=== PATIENT | male | born 1950 | race Caucasian/White ===

== ENCOUNTER → 2017-06-14 | Outpatient (CLI) | payer OTHER ==
[~2017-06-14] MED LIST: ALPRAZOLAM 0.0.25 M1 PO; AMBIEN 5 MG TABL5 M1 PO; ASPIRIN EC81 M1 PO; CARVEDILOL6.25 MG PO; CETAPHIL226 GM; DIABETIC TUSSI400 MG PO; DIOVAN320 MG PO; FLONASE 0.05%50 MCG NASAL; FLOVENT HFA12 GM IH; FORTESTA60 GM TD; FUROSEMIDE 20 M20 M1 PO; FUROSEMIDE 40 M40 M1 PO; HUMALOG100 UNIT/1 SQ; HUMULIN N100 UNIT/1 SQ; IMDUR 60 MG TAB60 M1 PO; LANTUS INJECTION; LANTUS100 UNIT/M SUBQ; MEN'S 50+ DAIL1 EACH PO; MULTIVITAMINS1 EAC7 PO; NITROQUICK0.4 MG SL; NITROSTAT0.4 M1 SUBLING; OMEGA-31000 M1 PO; PLAVIX 75 MG TA75 M1 PO; POTASSIUM99 M1 PO; REGLAN 10 MG TA10 MG PO; REGLAN 5 MG TAB5 M1 PO; TUSSIN400 MG PO; VITAMIN D1000 UNI1 PO; ZANTAC 150MG T150 M1 PO; ZETIA10 MG PO; ZYRTEC10 MG PO
--- NOTE | ~2017-06-14 | 2DMMODE ---
[facility] [place] [place] [address] 2 D/M-MODE ECHOCARDIOGRAM Name: GABRIELE MARTINEZ JIM Room #: REG [facility]#: [id number] Admission: 06/14/17 Attend Phys: Eliud Michele MD Discharge: Date of : 48 Date of Service: 06/14/17 1427 Report #: [id number] THIS REPORT FOR: //name// APPROVED REPORT Study performed: 06/14/2017 13:00:30 EXAM: Comprehensive 2D, Doppler, and color-flow Echocardiogram Patient Location: Out-Patient Status: routine BSA: 2.16 HR: 78 bpm BP: 148/77 mmHg Rhythm: NSR/Irregular/PVC's Other Information Study Quality: Adequate Indications CAD Hx: CABG 2D Dimensions RVDd: 40.67 mm LVEF(%): 60.26 (>50%) IVSd: 10.14 (7-11mm) LVOT Diam: 21.73 (18-24mm) LVDd: 44.97 mm PWd: 9.84 (7-11mm) Ascending Ao: 31.64 (22-36mm) LVDs: 30.58 (25-40mm) Aortic Root: 31.94 mm Meyers's LVEF: 60.26 % Volumes Left Atrial Volume (Systole) Single Plane 4CH: 47.49 mL Single Plane 2CH: 46.65 mL LA ESV Index: 23.00 mL/m2 Aortic Valve AoV Peak Kai.: 1.72 m/s AO Peak Gr.: 11.89 mmHg LVOT Max P.34 mmHg LVOT Max V: 1.04 m/s JADA Vmax: 2.24 cm2 Mitral Valve E/A Ratio: 0.8 [facility] [address] [place] [address] 2 D/M-MODE ECHOCARDIOGRAM Name: [facility]RIELE [facility] Room #: REG [facility]#: [id number] Admission: 06/14/17 Attend Phys: Eliud Michele MD Discharge: Date of : 48 Date of Service: 06/14/17 1427 Report #: [id number] MV Decel. Time: 245.83 ms MV E Max Kai.: 1.07 m/s MV A Kai.: 1.31 m/s MV PHT: 71.29 ms IVRT: 69.20 ms Pulmonary Valve PV Peak Kai.: 1.19 m/s PV Peak Gr.: 5.65 mmHg Pulmonary Vein P Vein S: 0.53 m/s P Vein A: 0.30 m/s P Vein D: 0.56 m/s P Vein A Dur.: 124.6 msec P Vein S/D Ratio: 0.95 Tricuspid Valve RAP Estimate: 5.00 mmHg Left Ventricle The left ventricle is normal size. There is normal LV segmental wall motion. There is normal left ventricular wall thickness. Left ventricular systolic function is normal. LVEF is 60%. Mild diastolic dysfunction is present (impaired relaxation pattern). Right Ventricle The right ventricle is normal size. The right ventricular systolic function is normal. Atria The left atrium size is normal. The right atrium size is normal. Aortic Valve Aortic valve is calcified. No aortic regurgitation is present. There is no aortic valvular stenosis. Mitral Valve The mitral valve is normal in structure. There is mitral annular calcification. There is no mitral valve regurgitation noted. No evidence of mitral valve stenosis. Tricuspid Valve The tricuspid valve is normal in structure. There is no tricuspid valve regurgitation noted. Pulmonic Valve Pulmonic valve is not well visualized. Trace pulmonic [facility] [address] [place] [address] 2 D/M-MODE ECHOCARDIOGRAM Name: JUANGABRIELE [facility] Room #: REG CL [facility]#: [id number] Admission: 06/14/17 Attend Phys: Eliud Michele MD Discharge: Date of : 48 Date of Service: 06/14/17 1427 Report #: [id number] regurgitation. Great Vessels The aortic root is normal in size. The ascending aorta is normal in size. IVC is normal in size and collapses >50% with inspiration. Pericardium There is no pericardial effusion. <Conclusion> The left ventricle is normal size. Left ventricular systolic function is normal. Mild diastolic dysfunction is present (impaired relaxation pattern). The right ventricle is normal size. The left atrium size is normal. Aortic valve is calcified. There is no aortic valvular stenosis. The mitral valve is normal in structure. There is mitral annular calcification. <ELECTRONICALLY SIGNED> By: Eliud Michele MD 06/14/17 1427 1427 1427 Eliud Michele MD /INF
== END ==
LOC: CV 12:34
DX: I25.10 Atherosclerotic heart disease of native coronary artery without angina pectoris (principal); I65.23 Occlusion and stenosis of bilateral carotid arteries